=== PATIENT | male | born 1960 | race Caucasian/White ===

== ENCOUNTER 2025-05-17 14:11 | Outpatient (CLI) | payer OTHER, SELFPAY ==
--- NOTE | ~2025-05-17 | MR_ITS ---
EXAMINATION: MR knee LT wo con DATE: 05/17/2025 14:53 INDICATION: Status post reconstruction with pain TECHNIQUE: Magnetic resonance imaging (MRI) of the left knee was performed without intravenous contrast. Sequences included axial PD-weighted FS FSE, coronal PD-weighted FSE and PD-weighted FS FSE, sagittal PD-weighted FSE, and sagittal T2-weighted FS FSE. COMPARISON: None. FINDINGS: No fracture subluxation or dislocation. No acute or aggressive bony lesion seen. Small joint effusion present. Complex tear involving the posterior horn of the medial meniscus. The anterior horn appears intact. The lateral meniscus also appears intact. ACL graft fibers as well as PCL appear intact. Collateral ligaments appear intact. Extra articular soft tissues including quadriceps and infrapatellar tendons appear intact. Small Ferreira's cyst incidentally noted. Venous varices also noted along the medial aspect of the knee subcutaneous soft tissues. IMPRESSION: 1. Complex tear involving the posterior horn the medial meniscus. 2. ACL fibers appear intact. 3. Other findings as above. Reviewed, dictated and finalized at location A. [facility]
== END 2025-05-17 14:12 | disposition home or self-care (01) ==
LOC: GOSHIMG 14:16
PROVIDERS: PCP Physician Assistant
DX: S83.232A Complex tear of medial meniscus, current injury, left knee, initial encounter (principal); X58.XXXA Exposure to other specified factors, initial encounter; M71.22 Synovial cyst of popliteal space [Baker], left knee; I83.892 Varicose veins of left lower extremity with other complications; Z98.890 Other specified postprocedural states; M25.362 Other instability, left knee
CPT/HCPCS: 73721